=== PATIENT | male | born 1980 | race Two or more races ===

== ENCOUNTER 2021-11-07 14:34 | Outpatient (REF) | payer OTHER, SELFPAY ==
[2021-11-07 16:22] LABS: Vitamin B12 1147 pg/mL (200-900)
[2021-11-07 16:38] LABS: Erythrocyte Sedimentation Rate 7 MM/HR (0-15)
[2021-11-08 05:11] LABS: Lyme Abs Screen <0.90 index
[2021-11-08 08:26] LABS: Syphilis Screen Nonreactive (Nonreactive)
[2021-11-08 12:36] LABS: Anti Nuclear Antibody Screen NEGATIVE (NEGATIVE)
== END 2021-11-07 14:35 | disposition home or self-care (01) ==
LOC: HO.LAB 14:34
PROVIDERS: Visit Provider Psychiatry & Neurology Neurology
DX: G93.40 Encephalopathy, unspecified (principal)
CPT/HCPCS: 36415; 82607; 85652; 86038; 86039; 86617; 86618; 86780

== ENCOUNTER 2021-11-14 17:42 | Outpatient (REF) | payer OTHER, SELFPAY ==
--- NOTE | ~2021-11-14 | MR_ITS ---
EXAMINATION: MR head/brain wo con CLINICAL INFORMATION: Reason for Exam Encephalopathy. Memory loss, headaches, dizziness when standing. Symptoms 3-4 years. COMPARISON: None. TECHNIQUE: Routine unenhanced MRI of the brain. FINDINGS: The ventricles and sulci are normal in size and configuration. No intracranial hemorrhage, tumors or infarcts are noted. A minimal number of scattered supratentorial periventricular and subcortical white matter punctate T2 hyperintensities are noted and are of uncertain clinical significance given that similar findings are a frequent encountered asymptomatic findings. Susceptibility weighted images reveal no evidence of acute or chronic hemorrhage within the brain parenchyma. The craniocervical junction cerebellar tonsils are normal and figuration. No suspicious marrow abnormalities are identified. Normal flow-related signal intensity is visualized in the major intracranial vessels and dural sinuses. The orbits and globes are normal in appearance. Incidental note is made of a possible 5 mm mucosal retention cyst superiorly within the right maxillary sinus. No mastoid effusions identified. MR/MR head/brain wo con IMPRESSION: Normal unenhanced MRI of the brain.
== END 2021-11-14 17:43 | disposition home or self-care (01) ==
LOC: HO.MRI 17:42
PROVIDERS: Visit Provider Psychiatry & Neurology Neurology
DX: G93.40 Encephalopathy, unspecified (principal)
CPT/HCPCS: 70551